=== PATIENT | female | born 1970 | race Caucasian/White ===

== ENCOUNTER 2024-07-30 15:23 | Outpatient (AMB) | payer OTHER, SELFPAY ==
--- NOTE | 2024-07-30 15:24 | MHC.OFFVIS ---
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 Pt states she noticed it years ago but per PCP noticed this past June when establishing care. 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 Complaints include pain, swelling of lower extremities, cramping, fatigue, and heaviness of the lower extremities. It has been affecting their daily activities including walking, standing, work, and physical activity. It is noted more so in right leg. She has a medical history significant for Marfan's. She also has complaints knee osteoarthritis, which he is getting worked up for. She is never been a smoker and is nondiabetic. Patient denies any previous venous surgery or injections. Patient denies any history of DVT/ PE. Patient denies any history of phlebitis. Trial of compression includes - compression stockings, which she states helps They now present for vascular evaluation regarding their varicose veins. [facility] Medical History (Updated 07/31/24 @ 11:44 by Ethel Leal PA-C) delivery delivered Marfan syndrome Surgical History (Updated 07/30/24 @ 15:35 by JOSEPH Dong) H/O eye surgery Social History (Updated 07/30/24 @ 15:34 by JOSEPH Dong) Patient Tobacco Use Status: Never used Tobacco Review of Systems Const Reports as per HPI and Denies weakness ENT Reports Normal hearing present and Denies dizziness Card Reports as per HPI, Denies chest pain, Denies chest pain at rest, Denies chest pain with activity, Denies dyspnea and Denies dyspnea on exertion Resp Reports as per HPI, Denies cough, Denies dyspnea and Denies dyspnea on exertion GI Reports as per HPI, Denies abdominal pain, Denies nausea and Denies vomiting Musc Denies numbness Skin/Breast Reports as per HPI, Denies erythema and Denies wounds Neuro Reports Normal hearing present, Denies dizziness, Denies numbness, Denies Sensory deficit (Neuro) and Denies weakness Psych Reports no additional complaints Endo Reports no additional complaints Physical Exam Vital Signs: BMI result Body Mass Index 42.5 Const General: healthy appearing and no acute distress Orientation/consciousness: patient oriented x3 HEENT Head: Yes normal to inspection Ears: hearing grossly normal bilaterally Mouth: Normal oral and palatal mucosa present Resp Effort & Inspection: normal respiratory effort and able to speak in complete sentences Auscultation: clear to auscultation bilaterally Cardio Jugular venous distension: no JVD Rate: regular rate Rhythm: regular rhythm Heart sounds: S1 normal heart sound present and S2 normal heart sound present Bruits: no abdominal aortic bruits, no carotid bruits, no femoral bruits and no renal bruits Peripheral pulses: Peripheral pulses 2+ throughout GI Inspection: Yes normal to inspection Palpation (GI): No Abdominal aortic bruit present Skin General skin exam: no rashes or lesions noted Wounds: no wounds Hair: normal Neuro General: patient oriented x3 Cranial nerves: Yes Normal hearing present Cognition (Neuro): normal cognition Gait exam (Neuro): Normal gait present Motor exam (neuro): 5/5 motor strength present throughout Sensory Exam: No Sensory deficit (Neuro) Extrem Other: Bilateral lower extremities: +2 peripheral edema noted. Palpable DP pulses. No varicosities noted. Discoloration noted around the ankles. CEAP: C - 3/4 E - primary A - superficial P - reflux General: Yes normal to inspection, Yes full ROM, Yes capillary refill normal and Yes normal gait Assessment & Plan Assessment & Plan (1) Varicose veins of both lower extremities with inflammation: Code(s): I83.11 - Varicose veins of right lower extremity with inflammation; I83.12 - Varicose veins of left lower extremity with inflammation Category: Medical Plan: uSe is presenting today on a referral from her PCP for bilateral lower extremity swelling and pain, worsening over the last few years. In short, the patient has evidence of venous insufficiency. I have discussed the pathophysiology with the patient. In addition I have provided informational material regarding venous disease to the patient. We have discussed conservative measures including compression, elevation, and exercise. We discussed the importance of continuing wearing compression stockings, especially when she is working and sedentary. We discussed not to wear them more than 12 hours a day. I have taken the liberty of ordering venous insufficiency testing with the patient. They will follow up with me after testing. The patient had an opportunity to ask questions regarding the treatment plan. All questions were answered. Imaging studies, laboratory studies and physical exam results were discussed and reviewed in detail. No major barriers to understanding were identified. The patient expressed understanding and agreement with the above treatment plan. The patient is aware they should contact our office by phone for worsening of the current condition or the appearance of new symptoms. Thank you for allowing me to participate in the vascular care of this patient. If you have any questions or concerns regarding the treatment for the above condition please do not hesitate to contact me. The office telephone contact is [phone]. This note is constructed using voice recognition software. 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 Thank you for allowing me to participate in the care of your patient. Yours sincerely, HALEY Call Orders: Orders US venous duplex LE BI 1 Week I83.11 - Varicose veins of right lower extremity with inflammation, I83.12 - Varicose veins of left lower extremity with inflammation Coding Level of Care Code New Pt Level 4 (84108) Diagnoses Varicose veins of both lower extremities with inflammation I83.11; I83.12
[2024-07-30 15:28] VITALS: BMI 42.5
== END 2024-07-31 07:55 | disposition home or self-care (01) ==
PROVIDERS: Visit Provider Physician Assistant Surgical
DX: I83.11 Varicose veins of right lower extremity with inflammation (principal); I83.12 Varicose veins of left lower extremity with inflammation
CPT/HCPCS: 99204

== ENCOUNTER 2024-08-28 12:49 | Outpatient (REF) | payer OTHER, SELFPAY ==
--- NOTE | ~2024-08-28 | US_ITS ---
EXAMINATION: US LOWER EXTREMITY VENOUS (REFLUX EXAM), BILATERAL CLINICAL INFORMATION: Varices COMPARISON: None. TECHNIQUE: Color flow triplex imaging and compression Doppler was performed to evaluate both the deep and the superficial systems bilaterally. To evaluate the superficial system, the examination was performed in the upright position. Color-flow Doppler ultrasound and compression ultrasound were utilized. In addition, maneuvers were utilized to demonstrate reflux. FINDINGS: 1. DEEP VENOUS ULTRASOUND OF THE RIGHT LOWER EXTREMITY: Common Femoral Vein: Compressible, normal respiratory variation and augmented flow. Femoral Vein: Compressible, normal color flow and augmentation. Popliteal Vein: Compressible, normal augmentation. Deep Reflux: There is no evidence of reflux in the deep system in either the common femoral vein, superficial femoral or the popliteal vein. There is no evidence of a Mccain's cyst. 2. SUPERFICIAL ULTRASOUND WITH DOPPLER OF RIGHT LOWER EXTREMITY: GREAT SAPHENOUS VEIN: Saphenofemoral Junction: 0.6 cm; Reflux: 0 ms Proximal Thigh: 0.7 cm; Reflux: 0 ms Mid Thigh: 0.4 cm; Reflux: 0 ms Distal Thigh: 0.4 cm; Reflux: 0 ms At Knee: 0.3 cm; Reflux: 0 ms Proximal Calf: 0.1 cm; Reflux: 0 ms Mid Calf: 0.2 cm; Reflux: 0 ms Distal Calf: 0.2 cm; Reflux: 0 ms DUPLICATED MEDIAL GREAT SAPHENOUS VEIN: Diameter: None imaged Reflux: NA DUPLICATED LATERAL GREAT SAPHENOUS VEIN: Diameter: 0.3 cm. Reflux: NA SMALL SAPHENOUS VEIN: Saphenopopliteal Junction: 0.2 cm; Reflux: 0 ms Proximal: 0.2 cm; Reflux: 0 ms Distal: 0.2 cm; Reflux: 0 ms VEIN OF GIACOMINI: Size: NA Reflux: NA PERFORATORS: Location: Great saphenous vein and proximal thigh. Size: 0.2 cm. Reflux: NA VARICOSITIES: Location: None imaged. Size: NA Reflux: NA 3. DEEP VENOUS ULTRASOUND OF THE LEFT LOWER EXTREMITY: Common Femoral Vein: Compressible, normal respiratory variation and augmented flow. Femoral Vein: Compressible, normal color flow and augmentation. Popliteal Vein: Compressible, normal augmentation. Deep Reflux: There is no evidence of reflux in the deep system in either the common femoral vein, superficial femoral or the popliteal vein. There is no evidence of a Mccain's cyst. 4. SUPERFICIAL ULTRASOUND WITH DOPPLER OF LEFT LOWER EXTREMITY: GREAT SAPHENOUS VEIN: Saphenofemoral Junction: 0.8 cm; Reflux: 0 ms Proximal Thigh: 0.4 cm; Reflux: 0 ms Mid Thigh: 0.4 cm; Reflux: 0 ms Distal Thigh: 0.3 cm; Reflux: 0 ms At Knee: 0.3 cm; Reflux: 0 ms Proximal Calf: 0.2 cm; Reflux: 0 ms Mid Calf: 0.2 cm; Reflux: 0 ms Distal Calf: 0.1 cm; Reflux: 0 ms DUPLICATED MEDIAL GREAT SAPHENOUS VEIN: Diameter: None imaged Reflux: NA DUPLICATED LATERAL GREAT SAPHENOUS VEIN: Diameter: 0.2 cm. Reflux: NA SMALL SAPHENOUS VEIN: Saphenopopliteal Junction: 0.2 cm; Reflux: 0 ms Proximal: 0.2 cm; Reflux: 0 ms Distal: 0.2 cm; Reflux: 0 ms VEIN OF GIACOMINI: Size: NA Reflux: NA PERFORATORS: Location: None imaged Size: NA Reflux: NA VARICOSITIES: Location: None Imaged Size: NA Reflux: NA US/US venous duplex LE IMPRESSION: Right: No venous insufficiency. Perforators without reflux in the proximal thigh. Left: No venous insufficiency. Electronically signed by: Benjy Vidales MD 08/29/2024 02:35 PM [facility]ARTI
== END 2024-08-28 12:50 | disposition home or self-care (01) ==
LOC: HO.US 12:49
PROVIDERS: Visit Provider Physician Assistant Surgical
DX: I83.11 Varicose veins of right lower extremity with inflammation (principal); I83.12 Varicose veins of left lower extremity with inflammation
CPT/HCPCS: 93970

== ENCOUNTER → 2024-08-28 12:51 | Outpatient (BNV) | payer OTHER, SELFPAY | PROVIDERS: Visit Provider Radiology Diagnostic Radiology | DX: I83.11 Varicose veins of right lower extremity with inflammation (principal); I83.12 Varicose veins of left lower extremity with inflammation | CPT/HCPCS: 93970 ==

== ENCOUNTER 2024-09-10 15:21 | Outpatient (AMB) | payer OTHER, SELFPAY ==
--- NOTE | 2024-09-10 15:23 | A.OFFVIS_ITS ---
Intake Visit Reasons: follow up s/p 08/28/24 Intake Note: Patient presents for follow up. Patient states she uses compression socks at work and is using diclofenac , believes this may be helping her leg pain. Accompanied by: Self / Same As Patient Allergies codeine Allergy (Intermediate, Verified 09/10/24 15:24) throat swelling aspirin Allergy (Mild, Verified 09/10/24 15:24) Hives HPI HPI follow up s/p 08/28/24: Details: Sue is presenting today as a follow up to venous insufficiency ultrasound, performed on 08/28/24. She does continue with bilateral lower extremity swelling and cramping, but states that the cramping is not as bad. She is wearing her compression stockings daily at work. She states she has also elevating her legs at home whenever she can. She states she has also lost 12 lb, which is great. She has no new concerns today. [facility] Medical History delivery delivered Marfan syndrome Surgical History H/O eye surgery Social History Patient Tobacco Use Status: Never used Tobacco Review of Systems Const Reports as per HPI and Denies weakness ENT Reports Normal hearing present and Denies dizziness Card Reports as per HPI, Denies chest pain, Denies chest pain at rest, Denies chest pain with activity, Denies dyspnea and Denies dyspnea on exertion Resp Reports as per HPI, Denies cough, Denies dyspnea and Denies dyspnea on exertion GI Reports as per HPI, Denies abdominal pain, Denies nausea and Denies vomiting Musc Denies numbness Skin/Breast Reports as per HPI, Denies erythema and Denies wounds Neuro Reports Normal hearing present, Denies dizziness, Denies numbness, Denies Sensory deficit (Neuro) and Denies weakness Psych Reports no additional complaints Endo Reports no additional complaints Physical Exam Const General: healthy appearing and no acute distress Orientation/consciousness: patient oriented x3 HEENT Head: Yes normal to inspection Ears: hearing grossly normal bilaterally Mouth: Normal oral and palatal mucosa present Resp Effort & Inspection: normal respiratory effort and able to speak in complete sentences Auscultation: clear to auscultation bilaterally Cardio Jugular venous distension: no JVD Rate: regular rate Rhythm: regular rhythm Heart sounds: S1 normal heart sound present and S2 normal heart sound present Bruits: no abdominal aortic bruits, no carotid bruits, no femoral bruits and no renal bruits Peripheral pulses: Peripheral pulses 2+ throughout GI Inspection: Yes normal to inspection Palpation (GI): No Abdominal aortic bruit present Skin General skin exam: no rashes or lesions noted Wounds: no wounds Hair: normal Neuro General: patient oriented x3 Cranial nerves: Yes Normal hearing present Cognition (Neuro): normal cognition Gait exam (Neuro): Normal gait present Motor exam (neuro): 5/5 motor strength present throughout Sensory Exam: No Sensory deficit (Neuro) Extrem Other: Bilateral lower extremities:+2 peripheral edema noted. Palpable DP pulses. No varicosities noted. Discoloration noted around the ankles. Right in cm: Thigh 66 Knee 55 Calf 47.5 Ankle 31 Left in cm: Thigh 66 Knee 54.5 Calf 48 Ankle 32 General: Yes normal to inspection, Yes full ROM, Yes capillary refill normal and Yes normal gait Results Reviewed Results Reviewed: Brief summary of venous insufficiency testing is as follows: right great saphenous vein: negative right small saphenous vein: negative right accessory vein: none present left great saphenous vein: negative left small saphenous vein: negative left accessory vein: none present Please note there is no evidence of any venous aneurysms or significant tortuosity Assessment & Plan Assessment & Plan (1) Lymphedema: Code(s): I89.0 - Lymphedema, not elsewhere classified Category: Medical Plan: Sue is presenting today as a follow up to venous insufficiency ultrasound, performed on 08/28/24. The ultrasound was negative for any venous insufficiency. She does continue with bilateral lower extremity swelling despite continued use of compression stockings and elevation. In short the patient has late onset lymphedema. The patient has been on conservative treatment for at least 3 months with minimal relief. Patient has tried 30 mm of mercury compression garments, elevation, exercise, healthy diet, and doing manual says self MLD to the best of their ability for over 4 weeks but with no significant relief. She has been compliant with the program but has provided minimal relief. In addition, on physical exam we are noticing hyperpigmentation, lymphorrhea, and hyperplasia. It appears that she has stage 2 lymphedema. She has completed multiple forms of conservative therapy; yet, significant symptoms remain. She requires the use of a pneumatic compression device, which we will assist in trying to have the patient obtain them. A pneumatic compression device will help reduce swelling and other lymphedema comorbidities. We will add her on to our lymphedema clinic schedule on October 23. We have included measurements of bilateral lower extremities. We discussed the importance of continuing with compression stockings and elevating. Thank you for allowing us to assist in this patient's care. Coding Level of Care Code Est Pt Level 4 (79786) Diagnoses Lymphedema I89.0 Comment Review of venous insufficiency ultrasound
== END 2024-09-10 16:00 ==
PROVIDERS: Visit Provider Physician Assistant Surgical
DX: I89.0 Lymphedema, not elsewhere classified (principal)
CPT/HCPCS: 99214

== ENCOUNTER → 2024-09-10 15:21 | Outpatient (BNVA) | payer OTHER, SELFPAY | PROVIDERS: Visit Provider Physician Assistant Surgical ==

== ENCOUNTER 2024-10-23 14:14 | Outpatient (AMB) | payer OTHER, SELFPAY ==
--- NOTE | 2024-10-23 14:42 | A.OFFVIS_ITS ---
Vital Signs 10/23/24 14:44 Height 5 ft 3 in Intake Visit Reasons: Lymphedema Clinic Intake Note: Patient here for lymphedema clinic. Accompanied by: Self / Same As Patient Allergies codeine Allergy (Intermediate, Verified 10/23/24 14:44) throat swelling aspirin Allergy (Mild, Verified 10/23/24 14:44) Hives HPI HPI Lymphedema Clinic: Details: Sue is presenting today for our lymphedema clinic. She continues to endorse bilateral lower extremity swelling and cramping, which has lessened. She continues to wear her compression socks daily. She has no new concerns today. [facility] Medical History delivery delivered Marfan syndrome Surgical History H/O eye surgery Social History Patient Tobacco Use Status: Never used Tobacco Review of Systems Const Reports as per HPI and Denies weakness ENT Reports Normal hearing present and Denies dizziness Card Reports as per HPI, Denies chest pain, Denies chest pain at rest, Denies chest pain with activity, Denies dyspnea and Denies dyspnea on exertion Resp Reports as per HPI, Denies cough, Denies dyspnea and Denies dyspnea on exertion GI Reports as per HPI, Denies abdominal pain, Denies nausea and Denies vomiting Musc Denies numbness Skin/Breast Reports as per HPI, Denies erythema and Denies wounds Neuro Reports Normal hearing present, Denies dizziness, Denies numbness, Denies Sensory deficit (Neuro) and Denies weakness Psych Reports no additional complaints Endo Reports no additional complaints Physical Exam Const General: healthy appearing and no acute distress Orientation/consciousness: patient oriented x3 HEENT Head: Yes normal to inspection Ears: hearing grossly normal bilaterally Mouth: Normal oral and palatal mucosa present Resp Effort & Inspection: normal respiratory effort and able to speak in complete sentences Auscultation: clear to auscultation bilaterally Cardio Jugular venous distension: no JVD Rate: regular rate Rhythm: regular rhythm Heart sounds: S1 normal heart sound present and S2 normal heart sound present Bruits: no abdominal aortic bruits, no carotid bruits, no femoral bruits and no renal bruits Peripheral pulses: Peripheral pulses 2+ throughout GI Inspection: Yes normal to inspection Palpation (GI): No Abdominal aortic bruit present Skin General skin exam: no rashes or lesions noted Wounds: no wounds Hair: normal Neuro General: patient oriented x3 Cranial nerves: Yes Normal hearing present Cognition (Neuro): normal cognition Gait exam (Neuro): Normal gait present Motor exam (neuro): 5/5 motor strength present throughout Sensory Exam: No Sensory deficit (Neuro) Extrem Other: Bilateral lower extremities:+2 peripheral edema noted. Palpable DP pulses. No varicosities noted. Discoloration noted around the ankles. General: Yes normal to inspection, Yes full ROM, Yes capillary refill normal and Yes normal gait Assessment & Plan Assessment & Plan (1) Lymphedema: Code(s): I89.0 - Lymphedema, not elsewhere classified Category: Medical Plan: Sue is presenting today for our lymphedema clinic. She continues to endorse bilateral lower extremity swelling and cramping. Sue is presenting today to be fitted for lymphedema pumps. They have had more than 1 month, starting on 07/30/24, of conservative treatments with elevation, compression stockings daily use with 20-30mmHg, and physical activity/home exercises with minimal relief. They continue to have persistent symptoms despite conservative treatments. They are presenting with hyperpigmentation, lymphorrhea, hyperkeratosis, and 2+ pitting edema. They state the right leg is worse than the left leg. It appears that they has stage II lymphedema. Christian, from [email or web address], will be fitting them for a pneumatic compression device, which will get mailed to their house. The patient has lymphedema that extends to her upper thigh and abdominal region. The basic pneumatic compression device is not adequate for the patient; it has been trialed but is not clinically appropriate due to the extensive lymphedema noted. The advanced compression device will be the best in this case. Thank you allowing us to care for the patient. Coding Level of Care Code Est Pt Level 3 (03493) Diagnoses Lymphedema I89.0
== END 2024-10-23 15:11 | disposition home or self-care (01) ==
LOC: HO.HVS 14:15
PROVIDERS: Visit Provider Physician Assistant Surgical
DX: I89.0 Lymphedema, not elsewhere classified (principal)
CPT/HCPCS: 99213

== ENCOUNTER 2025-04-24 15:24 | Outpatient (AMB) | payer OTHER, SELFPAY ==
--- NOTE | 2025-04-24 15:27 | MHC.OFFVIS ---
Vital Signs 04/24/25 15:41 Height 5 ft 3 in Weight 207 lb 3.752 oz BMI 36.7 BP 103/64 Blood Pressure Location Lt brachial Position Sitting Pulse 72 Pulse Source Pulse Oximeter Intake Visit Reasons: Colonoscopy Screening Intake Note: New patient in office today for colonoscopy screening. CC: Patient denies having any GI symptoms today. She has never had a colonoscopy done before. Brine Purifier Required: No Accompanied by: Self / Same As Patient Allergies codeine Allergy (Intermediate, Verified 04/24/25 15:55) throat swelling aspirin Allergy (Mild, Verified 04/24/25 15:55) Hives HPI HPI Colonoscopy Screening: Details: 54-year-old female here for preprocedural meeting to discuss a screening colonoscopy she is referred by [facility]. PMX Super obesity-BMI 43 Hypothyroid Marfan syndrome Elevated fasting glucose Aortic dilation Lower leg edema Left foot pain Knee pain * SURGICAL HISTORY section Cataract surgery Lens eye surgery r/t Marfans [place] teeth removed * ALLERGIES Aspirin Codeine * [facility]: none TODAY'S VISIT Prior colonoscopy? : This is her first colonoscopy Bowel or upper GI problems: no Cardiac or respiratory problem: no Prior problems with anesthesia or sedation: She has waken up with every surgery she has had in the past. Infectious disease problems: NO Family history: No PFSH Medical History (Updated 04/24/25 @ 17:12 by LEONARDO Wong) delivery delivered Marfan syndrome Surgical History (Updated 04/24/25 @ 17:12 by LEONARDO Wong) H/O wisdom tooth extraction S/P section H/O eye surgery Family History Paternal Grandfather Colon cancer Social History Alcohol intake: current Alcohol intake frequency: holidays/special occasions only Patient Tobacco Use Status: Never used Tobacco Review of Systems Const Denies fatigue, Denies fever(s), Denies night sweats, Denies poor appetite and Reports weight loss (About 50 lb with a intentional dieting) Eyes Details: glasses Reports requires corrective lenses ENT Reports Normal hearing present, Denies dental pain, Denies dysphagia, Denies hearing loss, Denies mouth pain, Denies odynophagia, Denies throat swelling, Denies tongue swelling and Reports other (Dentition adequate) Card Reports no additional complaints Resp Reports no additional complaints GI Details: Denies abdominal pain, Denies melena, Denies bloating, Denies hematochezia, Denies constipation, Denies GI cramping, Denies dysphagia, Denies excessive flatus, Denies early satiety, Denies heartburn, Denies diarrhea, Denies nausea, Denies odynophagia, Denies vomiting and Denies hematemesis Musc Reports arthralgias and Reports stiffness Skin/Breast Denies pruritus, Denies lesions, Denies rash and Denies jaundice Neuro Reports Normal hearing present and Denies Abnormal speech present Endo Denies fatigue Aller/Immun Denies throat swelling and Denies tongue swelling Physical Exam Vital Signs: Last Vital Signs Pulse 72 04/24/25 15:41 BP 103/64 04/24/25 15:41 BMI result Body Mass Index 36.7 Const General: cooperative, no acute distress, well developed and well groomed Nutritional Appearance: well nourished and obese morbidly obese Orientation/consciousness: oriented to person, oriented to place and oriented to time Limitations: No language barrier HEENT Head: Yes normocephalic and Yes atraumatic Eyes General: appearance normal, both eyes and all related structures Pupils: Equal, round and reactive pupils present Neck Neck: Yes normal visual inspection and Yes no lymphadenopathy Thyroid: Thyroid normal Resp Effort & Inspection: normal respiratory effort and able to speak in complete sentences Auscultation: clear to auscultation bilaterally Cardio Rate: regular rate Rhythm: regular rhythm Heart sounds: Normal, physiologic split S2 sound present Peripheral pulses: radial pulses present and posterior tibial pulses present GI Inspection: No distended, Yes Abdominal panniculus present and Yes obesity Palpation (GI): Soft to palpation, nontender, no guarding, not rigid and No hepatosplenomegaly present Percussion: Yes normal to percussion Auscultation: normal bowel sounds Rectal Exam - Female: deferred Abdomen image:  1. Surgical scar Skin General skin exam: no rashes or lesions noted, turgor normal, skin not dry, no jaundice, No spider nevi and no striae Rashes: no rashes Nails: normal Neuro General: oriented to person, oriented to place and oriented to time Cranial nerves: Yes Equal, round and reactive pupils present and Yes Normal hearing present Speech: No Abnormal speech present Extrem General: Yes normal to inspection, No clubbing, No cyanosis, Yes edema (Bilateral nonpitting) and No venous stasis dermatitis Psych Appearance: grossly normal and well kempt Mental Status: mental status grossly normal Speech and movement: Normal speech and movement present Affect: normal affect Attitude: cooperative Thought process: Normal thought process present and not confabulating Thought content: Normal thought content present Insight: Good insight present (Psych) Judgement: Good judgement present (Psych) Assessment & Plan Assessment & Plan (1) Pre-op examination: Code(s): Z01.818 - Encounter for other preprocedural examination Category: Medical (2) Anesthesia complication: Comment: Patient is difficult to sedate and frequently wakes up during procedures and surgeries Code(s): T88.59XA - Other complications of anesthesia, initial encounter Category: Medical (3) Morbid obesity: Code(s): E66.01 - Morbid (severe) obesity due to excess calories Category: Medical (4) Osteoarthritis of both knees: Code(s): M17.0 - Bilateral primary osteoarthritis of knee Category: Medical (5) Hypothyroid: Code(s): E03.9 - Hypothyroidism, unspecified Category: Medical (6) Marfan syndrome: Code(s): Q87.40 - Marfan syndrome, unspecified Category: Medical Plan Prior colonoscopy? : This is her first colonoscopy Bowel or upper GI problems: no Cardiac or respiratory problem: no Prior problems with anesthesia or sedation: She has waken up with every surgery she has had in the past. Infectious disease problems: NO Family history: No Orders: Referrals GI Procedure Notification Z01.818 - Encounter for other preprocedural examination Medications: New peg 3350-electrolytes 236-22.74-6.74 -5.86 gram (Golytely) until fecal effluent is clear; do not exceed a total volume of 2,000 mL 240 mL PO Q10M 4,000 mL 0RF 1 day Z12.11 - Encounter for screening for malignant neoplasm of colon bisacodyl (Dulcolax (bisacodyl)) 10 mg (2 x 5 mg) PO BEDTIME 4 tabs 0RF 2 days Coding Level of Care Code New Pt Level 3 (81013) Diagnoses Pre-op examination Z01.818 Anesthesia complication T88.59XA Morbid obesity E66.01 Osteoarthritis of both knees M17.0 Hypothyroid E03.9 Marfan syndrome Q87.40
[2025-04-24 15:41] VITALS: BP 103/64; PULSE 72; BMI 36.7
--- OUTSIDE RECORDS SUMMARY | 2025-04-24 19:13 | XMS_ITS | Encounter Summary ---
Author Organization [facility] Address [address] [place] [phone] Phone Care Team Providers Care Ginner Helper Name Role Phone Pcp, Unknown Primary Care Provider UnavailCristian Ervin MD Primary Care Prov ider Pcp, Not Required Primary Care Provider Unavaila ble Unknown, Unknown Primary Care Provider Zara lara Encounter Details Date Type Department Care Team (Late st Contact Info) Description 09/27/2022 Procedure Pass MAX 6TH [facility] PERIOP DEPT [address] [place] [address] Social History Tobacco Use Types Packs/Day Years Used Date Smoking Tobacco: Never Smokeless Tobacco: Never Alcohol Use Standard Drinks/Week Comments Never 0 (1 standard drink = 0.6 oz pur e alcohol) Comments No Sex and Gender Information Value Date Recorded Sex Assigned at Female 05/16/2022 8:59 AM EST Legal Sex Female 9:36 PM EDT Gender Identity Female 05/16/2022 8:59 AM EST Sexual Orientation Straight 05/16/2022 8: 59 AM EST documented as of this encounter Plan of Treatment Upcoming Encounters Date Type Department Care Team (Late st Contact Info) Description 05/16/2025 1:20 PM EST Office Visit [facility] [address] [place] [address] 3rd Floor, [address] [place] [address] Von Redmond MD [address] [facility], [address] [place] [address] documented as of this encounter Visit Diagnoses Not on filedocumented in this encounter Care Teams Ginner Helper Relationship Specialty Start Date End Date Pcp, Unknown PCP - General 05/16/22 11/14/22 Cristian Leon MD [address] [place] [id number] PCP - General Internal Medicine 11/15/22 Pcp, Not Required [address] [place] [id number] PCP - General 08/02/23 11/14/23 Unknown, Unknown, PCP - General 11/15/23 documented as of this encounter Additional Source Comments The information contained in this document represents components of the legal health record. It is not the complete legal health record.[facility]
--- OUTSIDE RECORDS SUMMARY | 2025-04-24 19:13 | XMS_ITS | Patient Health Record ---
Author Organization [facility] Address [address] [place] [address] Care Team Providers Care Preparation Room Worker Name Role Phone Yoni Rivera Primary Care Provider Zehra Hickman Unavailable [phone] Allergies Allergen (clinical drug ingredient) Drug/Non Drug Allergy documented on EMR Reaction Allergy Type Onset Date Status aspirin Aspirin hives Drug Allergy Active codeine Codeine throat swells Drug Allergy Act geovanna Reason For Referral No Information Medications Medication SIG (Take, Route, Frequency, Duration) Notes Start Date End Date Status Meclizine HCl 12.5 MG TAKE 1 TABLET BY M OUTH THREE TIMES A DAY Oral; Duration: 4 Days Not-Taking Diclofenac Sodium 75 MG TAKE 1 TABLET BY MOUTH TWICE A DAY Oral; Duration: 30 Days Active Losartan Potassium 50 MG 1 tablet Orally Once a day; Duration: 30 day(s) 01/21/2025 Active Immunizations Vaccine Route Administration Date Status Comme nts Influenza Unknown 04/09/2024 Administered Social History Tobacco Use: Social History Observation Description Date Details (start date - stop date) Never Smoker NA - NA Tobacco use other than smoking: Question Answer Notes Are you an other tobacco user? No Tobacco Control (Standard) Question Answer Notes Tobacco use: Nonsmoker Additional Findings: Tobacco non-user Current no nsmoker AUDIT-C (Standard) Question Answer Notes Did you have a drink containing alcohol in the p ast year? No Points 0 Interpretation Negative Problems Problem Type SNOMED Code ICD Code Onset Dates Problem Status W/U Status Risk Notes Problem Osteoarthritis of midtarsal joint of left foot (5218727821337575 ) Osteoarthritis of midtarsal joint of left foot (M19.072) Active confirmed Problem Osteoarthritis of midtarsal joint of right foot (7369338122614831 ) Osteoarthritis of midtarsal joint of right foot (M19.071) Active confirmed Vital Signs Blood pressure diastolic 57 mm Hg 04/07/2025 Height 5ft 3in in 04/07/2025 Blood pressure systolic 104 mm Hg 04/07/2025 Weight 202 lbs 04/07/2025 BMI 35.78 kg/m2 04/07/2025 Procedures Procedure Date Ordered Date Performed Result Body Sit e 32409-WHNQSAG NAIL, 6 OR MORE 01/22/2025 N/A 03635-GVNYBAE NAIL, 6 OR MORE 04/07/2025 N/A Encounters Encounter [facility] Date [facility] [phone] 01/22/[facility]25 Zehra Moore Pain in left foot M79.672 ; Pain in left ankle and joints of left foot M25.572 ; Bursitis of left foot M77.52 ; Osteoarthritis of midtarsal joint of left foot M19.072 ; Pain in right foot M79.671 ; Pain in right ankle and joints of right foot M25.571 ; Bursitis of right foot M77.51 ; Osteoarthritis of midtarsal joint of right foot M19.071 ; Pain in right toe(s) M79.674 ; Onychomycosis B35.1 ; Pain in left toe(s) M79.675 and Closed nondisplaced fracture of second metatarsal bone of left foot, initial encounter S92.325A [facility] [address] [address] 04/07/2025 Zehra Moore Pain in left foot M79.672 ; Pain in left ankle and joints of left foot M25.572 ; Bursitis of left foot M77.52 ; Pain in right foot M79.671 ; Pain in right ankle and joints of right foot M25.571 ; Bursitis of right foot M77.51 ; Pain in right toe(s) M79.674 ; Onychomycosis B35.1 ; Pain in left toe(s) M79.675 and Closed nondisplaced fracture of second metatarsal bone of left foot, initial encounter S92.325A Assessments Encounter Date Diagnosis (ICD Code) Assessment Notes Treatment Notes Treatment Clinical Notes Section Notes 01/22/2025 Pain in left ankle and joints of left foot (ICD-10 - M25.572) 01/22/2025 Pain in left foot (ICD-10 - M79.672) 04/07/2025 Pain in left ankle and joints of left foot (ICD-10 - M25.572) 04/07/2025 Pain in left foot (ICD-10 - M79.672) 04/07/2025 Bursitis of left foot (ICD-10 - M77.52) 01/22/2025 Bursitis of left foot (ICD-10 - M77.52) 01/22/2025 Osteoarthritis of midtarsal joint of left foot (ICD-10 - M19.072) 04/07/2025 Pain in right foot (ICD-10 - M79.671) 01/22/2025 Pain in right foot (ICD-10 - M79.671) 04/07/2025 Pain in right ankle and joints of right foot (ICD-10 - M25.571) 01/22/2025 Pain in right ankle and joints of right foot (ICD-10 - M25.571) 04/07/2025 Bursitis of right foot (ICD-10 - M77.51) 01/22/2025 Bursitis of right foot (ICD-10 - M77.51) 04/07/2025 Pain in right toe(s) (ICD-10 - M79.674) 01/22/2025 Osteoarthritis of midtarsal joint of right foot (ICD-10 - M19.071) 04/07/2025 Onychomycosis (ICD-10 - B35.1) 04/07/2025 Pain in left toe(s) (ICD-10 - M79.675) 01/22/2025 Pain in right toe(s) (ICD-10 - M79.674) 01/22/2025 Onychomycosis (ICD-10 - B35.1) 04/07/2025 Closed nondisplaced fracture of second metatarsal bone of left foot, initial encounter (ICD-10 - S92.325A) 01/22/2025 Pain in left toe(s) (ICD-10 - M79.675) 01/22/2025 Closed nondisplaced fracture of second metatarsal bone of left foot, initial encounter (ICD-10 - S92.325A) Plan Of Treatment Pending Test Test Name Order Date X ray : Foot, left 3V 01/22/2025 X ray : Foot, left 3V 04/07/2025 X ray : Foot, right 3V 01/22/2025 [id number] NAIL, 6 OR MORE 01/22/2025 [id number] NAIL, 6 OR MORE 04/07/2025 Insurance Providers Payer Name Payer Address Payer Phone Subscriber Number Group Number Insured Name Patient Relationship to Insured Coverage Start Date Coverage End Date [facility] [address] [address] [place] [address] [phone] [id number] Sue Dale Self - patient is the insured Medical (General) History Medical History History ICD Code Arthritis Back,Hip,and Knee pain Broken bones covid-19 Chicken pox Marfans Surgical History Surgery Date(Month/Year) section 03/21/1995 eye surgeries (multiple)
--- OUTSIDE RECORDS SUMMARY | 2025-04-24 19:13 | XMS_ITS | Encounter Summary ---
Author Organization [facility] Address [address] [place] [address] Phone Care Team Providers Care Chief Underwriter Name Role Phone Pcp, Unknown Primary Care Provider UnavailCristian Ervin MD Primary Care Prov ider Pcp, Not Required Primary Care Provider Unavaila ble Unknown, Unknown Primary Care Provider Zara lara Encounter Details Date Type Department Care Team (Late st Contact Info) Description 09/26/2022 Telephone [facility] [address] [facility] [address] [place] [address] Yuri Laurent MD [address] [place] [phone] [email or web address] Social History Tobacco Use Types Packs/Day Years [...] Description 05/16/2025 1:20 PM EST Office Visit [facility] [address] [place] [address] [address], [address] [place] [address] Von Redmond MD [address] [facility], [address] [place] [address] [email or web address] documented as of this encounter Visit Diagnoses Not on filedocumented in this encounter Care Teams Chief Underwriter Relationship Specialty Start Date End Date Pcp, Unknown PCP - General 05/16/22 11/14/22 Cristian Leon MD [address] [place] [address] PCP - General Internal Medicine 11/15/22 Pcp, Not Required [address] [place] [address] PCP - General 08/02/23 11/14/23 Unknown, Unknown, PCP - General 11/15/23 documented as of this encounter Additional Source Comments The information contained in this document represents components of the legal health record. It is not the complete legal health record.[facility]
--- OUTSIDE RECORDS SUMMARY | 2025-04-24 19:14 | XMS_ITS | Clinical Summary ---
Author Organization [facility] Address [facility] [address] [address] Phone Care Team Providers Care Field Operator Name Role Phone Unknown, Unknown Primary Care Provider Zara lara Allergies Active Allergy Reactions Criticality Noted Date Comments Aspirin Hives 05/09/2022 Codeine High 05/09/2022 Throat swelling Medications diclofenac sodium (VOLTAREN) 75 MG EC tablet Take 1 tablet (75 mg total) by mouth 2 (two) times a day. 60 tablet 1 4 Active losartan (COZAAR) 50 MG tablet Take 1 tablet (50 mg total) by mouth daily. 90 tablet 4 4 Active amoxicillin (AMOXIL) 500 MG capsuleIndication s:prevention of bacterial endocarditis Take 4 capsules (2,000 mg total) by mouth as needed (30-60 minutes before dental cleanings or procedures). 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 x / OS . x Optic nerve structure and function: Medications and intolerances: Procedures and Complications: lens extraction both eyes (dislocation? Nikita); pars plana vitrectomy, IOL exchange (Marlene) right eye 07/2022 (Mehran) - IOL re- exchange for ACIOL right eye 09/2022 (Mehran); patch of inadvertent bleb right eye 09/2023 (Georgina) Relevant history and problems: Marfan syndrome; Hypotony left eye after surgery for dislocated lens ([facility]) Assessment & Plan (05/28/2024 11:36 AM EST): No additional treatment now. Fine to follow up primary eye care and see me as needed. Assessment & Plan (01/09/2024 9:37 AM EDT): Patch of inadvertent bleb left eye - prednisolone acetate 1% stop Assessment & Plan (10/03/2023 5:24 PM EDT): Patch of inadvertent bleb left eye - prednisolone acetate 1% to two times per day May need to add medication for intraocular pressure left eye Assessment & Plan (09/19/2023 12:50 PM EDT): Patch of inadvertent bleb left eye - Pred Forte 1% two times per day. Patient given postoperative instructions and handout and told to call immediately for pain, redness, or decreasing vision. Shield/eye protection at all times. Stop all glaucoma drops in operative eye and any oral glaucoma medications. Patient is to continue all drops in the unoperated eye as previously directed. 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 After this discussion, the patient elected to proceed. To OR for closure of inadvertent bleb left eye. Mitral valve prolapse 11/14/2022 Marfan syndrome 06/15/2022 Aortic root dilation 06/15/2022 Immunizations Immunization Administration Dates Next Due COVID-19 (Pre-05/01) Pfizer Vaccine, mRNA, PF 05/24/2021,10/31/2020,10/07/2020 Family History Medical History Relation Comments Marfan syndrome Son Relation Status Comments Son Alive Social History Tobacco Use Types Packs/Day Years Used Date Smoking Tobacco: Never Smokeless Tobacco: Never Alcohol Use Standard Drinks/Week Comments Never 0 (1 standard drink = 0.6 oz pur e alcohol) Education Answer Date Recorded Are you interested in more education? Not on piedad e 11/04/2022 Are you concerned about learning? Not on file 11/04/2022 No 11/04/2022 No 11/04/2022 Digital Access Answer Date Recorded No 12/05/2022 No 12/05/2022 Reliable internet access at home? Not on file 12/05/2022 Device with a working camera? Not on file Intimate Partner Violence Answer Date R ecorded Are you denied basic needs s uch as food, clothing, or medical care? No 09/18/2023 In the past 12 months have y ou been in a relationship with a person who hurts, threatens, or tries to control you? No 09/18/2023 Are you denied basic needs s uch as food, clothing, or medical care? No 09/18/2023 In the past 12 months have y ou been in a relationship with a person who hurts, threatens, or tries to control you? No 09/18/2023 Comments No Sex and Gender Information Value Date Recorded Sex Assigned at Female 05/16/2022 8:59 AM EST Legal Sex Female 9:36 PM EDT Gender Identity Female 05/16/2022 8:59 AM EST Sexual Orientation Straight 05/16/2022 8: 59 AM EST Last Filed Vital Signs Vital Sign Reading Time Taken Comments Blood Pressure 122/69 11/28/2023 4:34 PM EDT Pulse 61 11/28/2023 4:34 PM EDT Temperature 36 C (96.8 F) 09/18/2023 9:59 AM EDT Respiratory Rate 16 09/18/2023 7:02 AM EDT Oxygen Saturation 98% 11/28/2023 4:34 PM EDT Inhaled Oxygen Concentration - - Weight 107.9 kg (237 lb 12.8 oz) 11/28/2023 4:34 PM EDT Height 159 cm (5' 2.6 ) 11/28/2023 4:34 PM EDT Body Mass Index 42.67 11/28/2023 4:34 PM EDT Plan of Treatment Upcoming Encounters Date Type Department Care Team (Late st Contact Info) Description 05/16/2025 1:20 PM EST Office Visit [facility] [address] [place] [address] [address] Floor, [address] [place] [address] Von Redmond MD [address] [facility], [address] [place] [address] [email or web address] Maintenance Due Date Last Done Comments CREATININE LEVEL 1968 LIPID PANEL 1968 POTASSIUM LEVEL 1968 DEPRESSION SCREENING 1980 HEPATITIS C SCREENING 1986 HIV ONE-TIME SCREENING (18-65 YEARS) 1986 PAP SMEAR 1989 SCREENING FOR DIABETES 11/30/2003 MAMMOGRAM 2008 COLOGUARD 2013 COLONOSCOPY 2013 COLORECTAL CANCER SCREENING 2013 FIT TEST 2013 FOBT 2013 SIGMOIDOSCOPY 2013 VIRTUAL COLONOSCOPY 2013 PNEUMOCOCCAL VACCINES (50+ years) (1 of 1 - PCV) 2018 RSV VACCINE (1 - Risk 50-74 years 1-dose series) 2018 ZOSTER VACCINES (1 of 2) 2018 Adult Td,Tdap Booster 11/17/2020 11/17/2010 INFLUENZA VACCINE (#1) 2025 , 05/24/2021, 06/24/2020, Additional history exists COVID-19 VACCINE (2024- season) 2025 06/09/2023, 02/26/2022, 05/24/2021, Additional history exists SMOKING STATUS SCREENING (Once After 26 Yrs) Completed 05/28/2024 HEPATITIS A VACCINES Aged Out No long er eligible based on patient's age to complete this topic HIB VACCINES Aged Out No longer eligi ble based on patient's age to complete this topic MENINGOCOCCAL VACCINES (ACWY) Aged Out No longer eligible based on patient's age to complete this topic MENINGOCOCCAL VACCINES (B) Aged Out N o longer eligible based on patient's age to complete this topic Medical Devices Implanted Type Area Trim Sawyer Device Identifier Shelf Expiration Date Model / Serial / Lot Lens Intraocular Ct Brandie 602 15.0d - [id number] Implanted:Qty: 1 on 07/26/2022 by Yuri Laurent MD at [facility] Eye and Ear Right: Eye BI [employer] 07/09/2025 CT BRANDIE 602 15.0D / [id number] / Kit Hemostat 2ml Sealant Duploject Syst 1 Appl 2 Joining Pc 4 Aplctn Audrey Tips Syringes [place] [employer] - [id number] Implanted:Qty: 1 on 07/26/2022 by Yuri Laurent MD at [facility] Eye and Ear Right: Eye [employer] 02/07/2024 [id number] / [id number] / [id number] Lens Intraocular Ac Mta3u0 12.5d - [id number] Implanted:Qty: 1 on 09/27/2022 by Yuri Laurent MD at [facility] Eye and Ear Right: Eye [employer] 04/28/2025 MTA3U0 12.5D / [id number] / Tutoplast Sclera 5x8mm - [id number] Implanted:Qty: 1 on 09/18/2023 by Thom Erickson MD, PhD at [facility] Eye and Ear Left: Eye [employer] 10/08/2027 [id number] / [id number] / [id number] Insurance [facility] [address] [address] [place] [address] [place] [address] [place] [address] UNITED R UNITED R [place] [address] [address] [facility] Care Teams Field Operator Relationship Specialty Start Date End Date Unknown, Unknown, PCP - General 11/15/23 Additional Source Comments The information contained in this document represents components of the legal health record. It is not the complete legal health record.[facility]
--- OUTSIDE RECORDS SUMMARY | 2025-04-24 19:14 | XMS_ITS | Encounter Summary ---
Author Organization [facility] Address [email or web address] [facility] [address] [place] [phone] Phone Care Team Providers Care Warehouse Distribution Specialist Name Role Phone Pcp, Not Required Primary Care Provider Unavaila ble Unknown, Unknown MD Primary Care Provider Zara lara Encounter Details Date Type Department Care Team (Late st Contact Info) Description 09/18/2023 Procedure Pass MAX 6TH FL PERIOP DEPT [address] [place] [id number] Social History Tobacco Use Types Packs/Day Years [...] Description 05/16/2025 1:20 PM EST Office Visit [facility] [address] [place] [address] [address] Floor, [address] [place] [address] Von Redmond MD [address] [facility], [address] [place] [address] [email or web address] documented as of this encounter Visit Diagnoses Not on filedocumented in this encounter Care Teams Warehouse Distribution Specialist Relationship Specialty Start Date End Date Pcp, Not Required [address] [place] [address] PCP - General 08/02/23 11/14/23 Unknown, Unknown, PCP - General 11/15/23 documented as of this encounter Additional Source Comments The information contained in this document represents components of the legal health record. It is not the complete legal health record.[facility]
--- OUTSIDE RECORDS SUMMARY | 2025-04-24 19:14 | XMS_ITS | Encounter Summary ---
Author Organization [facility] Address [address] [place] [address] Phone Care Team Providers Care Heat Regulator Name Role Phone Pcp, Unknown Primary Care Provider UnavailCristian Ervin MD Primary Care Prov ider Pcp, Not Required Primary Care Provider Unavaila ble Unknown, Unknown Primary Care Provider Zara lara Encounter Details Date Type Department Care Team (Late st Contact Info) Description 07/26/2022 Procedure Pass MAX 6TH FL PERIOP DEPT [address] [place] [id number] Social History Tobacco Use Types Packs/Day Years Used Date Smoking Tobacco: Never Smokeless Tobacco: Never Alcohol Use Standard Drinks/Week Comments Not Currently 0 (1 standard drink = 0.6 oz [...] Description 05/16/2025 1:20 PM EST Office Visit [facility] [address] [place] [address] [address] Floor, [address] [place] [address] Von Redmond MD [address] [facility], [address] [place] [address] [email or web address] documented as of this encounter Visit Diagnoses Not on filedocumented in this encounter Care Teams Heat Regulator Relationship Specialty Start Date End Date Pcp, Unknown PCP - General 05/16/22 11/14/22 Cristian Leon MD [address] [place] [id number] PCP - General Internal Medicine 11/15/22 Pcp, Not Required [address] [place] [address] PCP - General 08/02/23 11/14/23 Unknown, Unknown, PCP - General 11/15/23 documented as of this encounter Additional Source Comments The information contained in this document represents components of the legal health record. It is not the complete legal health record.[facility]
== END 2025-04-24 16:28 | disposition home or self-care (01) ==
PROVIDERS: Family Provider Nurse Practitioner Family; Visit Provider Nurse Practitioner
DX: Z01.818 Encounter for other preprocedural examination (principal); Z12.11 Encounter for screening for malignant neoplasm of colon; T88.59XA Other complications of anesthesia, initial encounter; Q87.40 Marfan syndrome, unspecified
CPT/HCPCS: S0285